=== PATIENT | male | born 1995 | race Caucasian/White ===

== ENCOUNTER 2019-03-17 09:01 | Emergency (ER) | payer OTHER ==
--- NOTE | 2019-03-17 09:17 | EDM.PDOC ---
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 He has been in bed but the pain is worsening. He denies any bowel or bladder changes. Patient has numbness on the outside of his foot. He is ambulatory. Review of systems: As per history of present illness and below otherwise all systems reviewed and negative. Past medical history: As per history of present illness and as reviewed below otherwise noncontributory. Surgical history: As per history of present illness and as reviewed below otherwise noncontributory. Social history: No reported history of drug or alcohol abuse. Family history: As per history of present illness and as reviewed below otherwise noncontributory. Physical exam: General: Well developed, well nourished in NAD HEENT: Atraumatic, normocephalic, pupils reactive, negative for conjunctival pallor or scleral icterus, mucous membranes moist, throat clear, neck supple, nontender, trachea midline. Lungs: Clear to auscultation, breath sounds equal bilaterally, chest nontender. Heart: S1S2, regular, negative for clicks, rubs, or JVD. Abdomen: NABS, Soft, nondistended, nontender. Negative for masses or hepatosplenomegaly. Negative for costovertebral tenderness. Pelvis: Stable nontender. Genitourinary: Deferred. Rectal: Deferred. Extremities: Atraumatic, negative for cords or calf pain. Neurovascular unremarkable. Neuro: Awake, alert, oriented. Cranial nerves II through XII unremarkable. Cerebellum unremarkable. Motor and sensory unremarkable throughout. Exam nonfocal. reflexes 2+ bilateral patellar and Achilles, toe, straight leg raise is negative. Skin:warm and dry Diagnostics: CT lumbar spine Therapeutics: Toradol, Flexeril ED Course: Impression: Prescriptions: Plan: Definitive disposition and diagnosis as appropriate pending reevaluation and review of above. low back pain radiating bilateral down legs Pain Score (Numeric/FACES): 10 - Related Data Allergies Allergy/AdvReac Type Severity Reaction Status Date / Time No Known Allergies Allergy Verified 03/17/19 09:13 Home Meds: Home Meds Cyclobenzaprine [Flexeril] 10 mg PO BID PRN #12 tab 03/17/19 [Rx] traMADol HCl [Tramadol HCl] 50 mg PO Q6H PRN #16 tablet 03/17/19 [Rx] Past Medical History - Past Health History Medical/Surgical History: Denies Medical/Surgical History - Infectious Disease History Infectious Disease History: Reports: Chicken Pox Social & Family History - Tobacco Use Smoking Status *Q: Current Every Day Smoker Years of Tobacco use: 10 Packs/Tins Daily: 0.5 ED ROS GENERAL - Review of Systems Review Of Systems: See Below ED EXAM,LOWER BACK PAIN/INJURY - Physical Exam Exam: See Below Course - Vital Signs Last Recorded V/S: Last Vital Signs Temp 97.8 F 03/17/19 09:11 Pulse 81 03/17/19 09:11 Resp 20 03/17/19 09:11 BP 121/77 03/17/19 09:11 Pulse Ox 98 03/17/19 09:11 - Orders/Labs/Meds Meds: Medications Discontinued Medications Generic Name Dose Route Start Last Admin Trade Name Freq PRN Reason Stop Dose Admin Cyclobenzaprine HCl 10 mg 03/17/19 11:48 03/17/19 11:55 Flexeril PO 03/17/19 11:49 10 mg ONETIME ONE Administration Ketorolac Tromethamine 30 mg 03/17/19 11:47 Toradol IVPUSH 03/17/19 11:48 ONETIME ONE Ketorolac Tromethamine 60 mg 03/17/19 11:48 03/17/19 11:55 Toradol IM 03/17/19 11:49 60 mg ONETIME ONE Administration Departure - Departure Time of Disposition: 12:14 Disposition: Home, Self-Care 01 Condition: Good Clinical Impression: Low back pain with right-sided sciatica Qualifiers: Chronicity: acute Back pain laterality: unspecified Qualified Code(s): M54.41 - Lumbago with sciatica, right side - Discharge Information *PRESCRIPTION DRUG MONITORING PROGRAM REVIEWED*: No *COPY OF PRESCRIPTION DRUG MONITORING REPORT IN PATIENT FIDE: No Prescriptions: Cyclobenzaprine [Flexeril] 10 mg PO BID PRN #12 tab PRN Reason: Pain traMADol HCl [Tramadol HCl] 50 mg PO Q6H PRN #16 tablet PRN Reason: Pain Referrals: PCP,None [Primary Care Provider] - Forms: ED Department Discharge Additional Instructions: The following information is given to patients seen in the emergency department who are being discharged to home. This information is to outline your options for follow-up care. We provide all patients seen in our emergency department with a follow-up referral. The need for follow-up, as well as the timing and circumstances, are variable depending upon the specifics of your emergency department visit. If you don't have a primary care physician on staff, we will provide you with a referral. We always advise you to contact your personal physician following an emergency department visit to inform them of the circumstance of the visit and for follow-up with them and/or the need for any referrals to a consulting specialist. The emergency department will also refer you to a specialist when appropriate. This referral assures that you have the opportunity for follow-up care with a specialist. All of these measure are taken in an effort to provide you with optimal care, which includes your follow-up. Under all circumstances we always encourage you to contact your private physician who remains a resource for coordinating your care. When calling for follow-up care, please make the office aware that this follow-up is from your recent emergency room visit. If for any reason you are refused follow-up, please contact the [facility] Emergency Department at and asked to speak to the emergency department charge nurse. Take meds as directed, follow up with your primary care physician, return to ER if symptoms worsen or change. Take meds as directed, follow up with your primary care physician, return to ER if symptoms worsen or change.
--- NOTE | 2019-03-17 11:41 | CT ---
INDICATION: History of disc herniation. Recent re-injury. TECHNIQUE: CT of the lumbar spine without contrast. Coronal and sagittal reformats are included. COMPARISON: None. FINDINGS: Five lumbar type vertebral bodies. Normal lumbar lordosis. No evidence of acute fracture or traumatic malalignment. No spondylolysis. Imaged retroperitoneal and paraspinous soft tissues are within normal limits. Findings at individual levels as follows: Interspaces: Lumbar disc heights are maintained. Spinal canal and neural foramina: T12-L1: No spinal canal or neural foraminal narrowing. L1-2: No spinal canal or neural foraminal narrowing. L2-3: Annular bulging. No spinal canal or neural foraminal narrowing. L3-4: Annular bulging. No spinal canal or neural foraminal narrowing. L4-5: Annular bulging. No spinal canal or neural foraminal narrowing. L5-S1: 7 millimeter broad-based right central disc protrusion deforms the ventral thecal sac and contacts the right greater than left traversing S1 nerve roots. No neural foraminal narrowing. Imaged SI joints: Mild bilateral arthrosis, with tiny anterior marginal osteophytes and subchondral sclerosis. Imaged sacrum: Within normal limits. IMPRESSION: 1. No acute fracture or traumatic malalignment of the lumbar spine. 2. At L5-S1, a 7 millimeter broad-based right central disc protrusion deforms the ventral thecal sac and contacts the right greater than left traversing S1 nerve roots. 3. Minimal spondylosis at the remaining lumbar levels, without spinal canal/neural foraminal narrowing. 4. Mild bilateral SI joint arthrosis. Please note that all CT scans at this facility use dose modulation, iterative reconstruction, and/or weight-based dosing when appropriate to reduce radiation dose to as low as reasonably achievable. Dictated by Keo Padilla MD @ Mar 17 2019 11:32AM Signed by Dr. Keo Padilla @ Mar 17 2019 11:39AM
[2019-03-17] MEDS ORDERED: Ketorolac 30 MG/ML SDV IVPUSH ONE (11:47)
[2019-03-17] MEDS ORDERED: Ketorolac 60 MG/2 ML SDV IM ONE (11:48)
[2019-03-17] MEDS ORDERED: Cyclobenzaprine 10 MG Tab PO ONE (11:48)
== END 2019-03-17 12:30 | disposition home or self-care (01) ==
LOC: MW.ED 09:01
DX: M54.41 Lumbago with sciatica, right side (principal); F17.210 Nicotine dependence, cigarettes, uncomplicated
CPT/HCPCS: 72131; 96372; 99283; A9270; J1885